=== PATIENT | female | born 1995 | race Caucasian/White ===

== ENCOUNTER 2023-06-24 19:08 | Inpatient (IN) ==
[2023-06-24] MEDS ORDERED: LIDOCAINE 1% LOCAL 20 ML VIAL INFIL PRN (19:27)
[2023-06-24] MEDS ORDERED: OXYTOCIN 30 UNITS/NSS 30 UNITS/500 ML BAG IV PRN (19:27)
--- NOTE | 2023-06-24 19:30 | History & Physical Report ---
Date of Service June 24, 2023 Assessment & Plan (1) 40 weeks gestation of : Plan: Admit she is early labor she is 4 cm now she was 2 cm in the office she is tomorrow's induction so we will keep her and admit her she is having some bright red bleeding I am assuming this is related to cervical change but we will watch this carefully membranes appear intact History of Present Illness Primary Care Provider: NO PCP LEE Calculator Estimated Delivery Date Method Current WG Current Estimate 06/17/23 Ultrasound #1 40w 6d : 1 Full term: 0 Premature: 0 Total Number of Induced Abortions: 0 Total Number of Spontaneous Abortions: 0 Ectopics: 0 Multiple births: 0 Number of Living Children: 0 and Delivery Plans Current every day vaping early labor Allergies Allergy/AdvReac Type Severity Reaction Status Date / Time No Known Allergies Allergy Verified 06/23/23 14:20 Home Medications Medication Instructions Recorded Confirmed Type [id number] acid 1 tab PO DAILY 02/07/23 06/24/23 History [ Multi] Patient History Medical History PTSD (post-traumatic stress disorder) Depression with anxiety History of chicken pox Surgical History S/P wisdom tooth extraction S/P tonsillectomy Family History Denies family history of Ovarian cancer Breast cancer Colorectal cancer Social History Smoking Status: Never smoker Tobacco Type: E-cigarettes / Vaping Do You Dip or Chew Tobacco: No; Hx Alcohol Use: No Hx Substance Use: No Preferred Language: Nauruan marital status: Single marital status details: nay Crisostomo (25) [phone] Current Living Situation: Significant Other Current Living Situation Comment: lives with fob, dogs, cat-fob changing litter current occupational status: unemployed Feels Safe at Home: Yes Physical Exam Constitutional: WD/WN, vitals as above well developed and well nourished Respiratory: normal respiratory effort, lungs clear to auscultation normal respiratory effort Cardiovascular: RRR, no murmur, no edema Gastrointestinal (Abdomen): normal bowel sounds, soft, nontender, no hepatosplenomegaly Results & Data Vital Signs (Past 12 Hours) Vital Signs Pulse BP 06/24/23 19:20 88 132/82 Coding Level of Care Code None Diagnoses 40 weeks gestation of Z3A.40
[2023-06-24] MEDS: LACTATED RINGER'S 1,000 ML IV PRN (19:40)
[2023-06-24 20:06] LABS: Hematocrit (blood only) 36.4 % (37.0-47.0); Hemoglobin 12.8 g/dl (12.0-16.0); Mean Corpuscular Hemoglobin 30.4 pg (25.0-34.0); Mean Corpuscular Hgb Conc 35.2 g/dL (32.0-36.0); Mean Corpuscular Volume 86.5 fL (80.0-100.0); Mean Platelet Volume 11.2 fL (9.4-12.4); Platelet Count 203 K/uL (130-400); RDW Coefficient of Variation 13.1 % (11.5-14.5); RDW Standard Deviation 40.8 fL (36.4-46.3); Red Blood Count 4.21 M/uL (4.20-5.40); White Blood Count 13.24 K/ul (4.8-10.8)
--- NOTE | 2023-06-24 20:36 | Labor Progress Brief Note ---
Date of Service June 24, 2023 Multiple variable decelerations noted on the tracing and additionally some increased vaginal bleeding is somewhat worrisome as her contractions are only mild I rechecked her she is still 4 cm blood is noted on the glove. She passed an orange sized clot and then a plum sized clot Had a lengthy discussion with the patient and said at this stage she is not really an active labor she is probably getting some early labor contractions and her fetus is showing variable decelerations with the bleeding I have offered her 2 choices 1 is we can hydrate and observe and the alternative is just proceed straight to section with the bleeding in the decelerations present at such an early stage I have counseled in depth on both options including the risks of and also the risks of waiting with the potential for the tracing to become worse and then a more of a need for an urgent situation of section. The patient was counseled to the nature of the procedure including alternatives such as labor. Risks were discussed including bleeding infection injury to bowel bladder ureter vessels and even baby. Deep Vein thrombosis, pulmonary embolus discussed. Breakdown of incision reviewed. Deep vein thrombosis pulmonary embolus hernia and failure of the incision to heal were discussed Patient verbalized understanding of this and was given ample time to ask questions Assessment & Plan Admission and Anticipated Discharge Date Admission Date: June 24, 2023 Results & Data Vital Signs (Past 12 Hours) Vital Signs Temp Pulse Resp BP 06/24/23 19:25 98.2 F 18 06/24/23 19:20 88 132/82 Coding Level of Care Code None
--- NOTE | 2023-06-24 20:55 | Anesthesiology Consultation ---
Date of Service June 24, 2023 Assessment & Plan Chart Review Chart Review: Acceptable Risk for Surgery and Patient NOT seen in Pre Admission Testing Consults Requested none History Height/Weight Height: 5 ft 5 in Weight: 84.368 kg Allergies Allergy/AdvReac Type Severity Reaction Status Date / Time No Known Allergies Allergy Verified 06/23/23 14:20 Medications Home Medications Medication Instructions Recorded Confirmed Last Taken [id number] acid 1 tab PO DAILY 02/07/23 06/24/23 06/24/23 [ Multi] Active Medications Generic Name Dose Route Start Last Admin Trade Name Freq PRN Reason Stop Dose Admin Lactated Ringer's 1,000 mls @ 125 mls/hr 06/24/23 19:27 06/24/23 19:40 Lr IV 06/26/23 19: 999 mls/hr .Q8H PRN Administration L&D Protocol Protocol Past Medical History Medical History PTSD (post-traumatic stress disorder) Depression with anxiety History of chicken pox Past Family History Family History Denies family history of Ovarian cancer Breast cancer Colorectal cancer Past Surgical History Surgical History S/P wisdom tooth extraction S/P tonsillectomy Social History Smoking Status: Never smoker Do You Dip or Chew Tobacco: No Hx Alcohol Use: No Hx Substance Use: No substance use type: does not use Physical Exam Vital Signs Last Vital Signs Temp 36.8 C 06/24/23 19:25 Pulse 88 06/24/23 19:20 Resp 18 06/24/23 19:25 BP 132/82 06/24/23 19:20 Constitutional WD/WN, vitals as above well developed and well nourished Respiratory normal respiratory effort, lungs clear to auscultation normal respiratory effort Cardiovascular RRR, no murmur, no edema Gastrointestinal (Abdomen) normal bowel sounds, soft, nontender, no hepatosplenomegaly Testing Laboratory Results 06/24/23 19:46
[2023-06-24] MEDS ORDERED: MoRPHine SULFATE PF 1 MG/ML 10 ML AMP/VIAL ONE (21:02)
[2023-06-24] MEDS ORDERED: fentaNYL citrate PF 100 MCG/2 ML VIAL ONE (21:02)
[2023-06-24] MEDS ORDERED: PHENYLEPHRINE HCL 10 MG/ML VIAL ONE (21:04)
[2023-06-24] MEDS ORDERED: OXYTOCIN 10 UNITS/ML VIAL ONE ×3 (21:04)
[2023-06-24] MEDS: LACTATED RINGER'S 1,000 ML IV SCH (21:06)
[2023-06-24] MEDS: ceFAZolin 2000MG 2,000 MG/15 ML SYR IV SCH (21:14)
[2023-06-24] MEDS ORDERED: ONDANSETRON INJ 2 MG/ML 2 ML VIAL IV PRN (21:58)
[2023-06-24] MEDS ORDERED: NALOXONE HCL 0.4 MG/1 ML VIAL/CARP IV PRN (21:58)
[2023-06-24] MEDS ORDERED: DROPERIDOL 5 MG/2 ML VIAL IV PRN (21:58)
[2023-06-24] MEDS ORDERED: NALBUPHINE HCL 5 MG in SYRINGE 0 ML IV PRN (21:58)
[2023-06-24] MEDS ORDERED: NALOXONE HCL 0.08 MG in SYRINGE 1.8 ML IV PRN (21:58)
[2023-06-24] MEDS ORDERED: NALOXONE HCL 1 MG in SODIUM CHLORIDE 0.9% 1,000 ML IV PRN (21:58)
[2023-06-24] MEDS ORDERED: MoRPHine SULFATE PF 1 MG/ML 10 ML AMP/VIAL INT SPINAL ONE (21:58)
[2023-06-24] MEDS ORDERED: HYDROmorphone INJ 0.5 MG/0.5 ML SYR IV PRN (21:58)
[2023-06-24] MEDS ORDERED: diphenhydrAMINE 50 MG/ML VIAL IV PRN (21:58)
[2023-06-24] MEDS ORDERED: ePHEDrine sulfate 50 MG/ML AMP IV PRN (21:58)
[2023-06-24] MEDS ORDERED: LACTATED RINGER'S 500 ML IV PRN (21:58)
[2023-06-24] MEDS ORDERED: DC INTRASPINAL MORPHINE SCH (22:00)
[2023-06-24] MEDS ORDERED: NO NARCOTICS OR SEDATIVES SCH (22:00)
[2023-06-24] MEDS ORDERED: SODIUM CHLORIDE 0.9% 1,000 ML IV SCH (22:00)
--- NOTE | 2023-06-24 22:19 | Operative Report ---
PG Post Operative Report Pre & Post Diagnosis Operation Date: 06/24/23 21:00 Placental abruption and nonreassuring heart rate tracing I identified the patient and participated in the time-out.: Yes Procedure Operation Date: 06/24/23 21:00 Actual Procedures p Section in LD for the of a live male child @ 2150(Bilateral) - Sherrie Zhao MD, FACOG Surgeon Sherrie Zhao MD, FACOG Data Governance Analyst CHAGO Cuevas Estimated Blood Loss 500 Findings Consistent with Post-Op Diagnosis Normal uterus and ovaries Specimens Cord gases Cord blood placenta Description of Procedure Regional anesthetic had been given by anesthesia patient was prepped and draped with a leftward tilt preoperative antibiotics had been given in appropriate timing by anesthesiology. Once the prep was allowed to fully dry timeout was performed. Pickups with teeth were used to test the incision area was found to be adequate for incision as the patient did not feel sharp pain. Scalpel was used to make a Pfannenstiel incision on the lower abdomen. We then cut through the subcutaneous fat down to the level of the anterior rectus sheath fascia this was cut in the midline and then extended laterally with the curved Yang scissors. At this stage we then placed 2 Crescencio clamps on the anterior aspect of the fascia. Using the curved Yang's we are able to dissect the fascia superiorly away from the rectus muscles. Care was taken to maintain hemostasis. Crescencio clamps were then placed to the inferior aspect of the anterior sheath of the fascia. Fascia was then dissected away from the rectus muscles inferiorly towards the pubic bone. A Crescencio was then placed in the midline both inferiorly and superiorly. This was to allow exposure by retraction rectus muscles were in the midline with were then able to cut through the peritoneum and then enter the peritoneal cavity. Opening was enlarged to allow exposure of the peritoneal cavity both superiorly and inferiorly. Once adequate space was obtained a bladder retractor was placed to expose the lower segment Metzenbaums were used to dissect the bladder flap inferiorly away from the uterus. This was done sharply bladder retractor was then repositioned to expose the lower segment of the uterus Fresh scalpel was used to make a low transverse incision on the uterus. Uterus was then entered bluntly with the operators finger, membranes ruptured and the opening was enlarged using the operators fingers bluntly pulling superiorly and inferiorly to allow exposure. Baby was delivered by first flexion of the head elevation of the head out of the pelvis and then pressure by the human resource assistant on the maternal abdomen. Baby's head was then delivered mouth and then nares were suctioned and then using gentle traction the baby was fully delivered. Live vigorous . Fluid was clear cord clamped and cut cord gases obtained cord blood obtained baby handed to pediatrics. Placenta removed was removed with traction we ensure the entire placenta was removed with a moist lap sponge into the uterus Uterus was then exteriorized. IV Pitocin had been started by anesthesia tone improved there were no extensions the uterus was then closed using 0 Monocryl in a 2 layer closure the first layer closed in a running locked fashion from left to right and then a second closure from left to right in a running nonlocked fashion. At this stage hemostasis was excellent. Uterus was placed back in the peritoneal cavity with suction irrigation out and inspection of the uterus at this stage revealed excellent hemostasis Retractors were removed urine color was clear at this stage of the case we inspected the rectus muscles they were hemostatic fascia was closed with 0 Vicr yl subcutaneous fat was irrigated and closed with 3-0 Vicryl skin closed with 4- 0 subcuticular Monocryl Note uterus and adnexa were normal I attest to the content of the Intraoperative Record and any orders documented therein. Any exceptions are noted below. OB Procedure Charges 06073
--- NOTE | 2023-06-24 22:32 | Anesthesiology Progress Note ---
Date of Service June 24, 2023 Anesthesia Post Procedure Vital Signs Vital Signs: Temp Pulse Resp BP Pulse Ox 06/24/23 22:29 73 100 06/24/23 22:28 82 93 06/24/23 22:24 78 195/149 H 100 06/24/23 19:25 36.8 C 18 06/24/23 19:20 88 132/82 Transfer of Care Handoff Completed per policy Notes Mental Status: alert / awake / arousable Patient Amnestic to Procedure: Yes Nausea / Vomiting: adequately controlled Pain: adequately controlled Airway Patency, RR, SpO2: stable & adequate BP & HR: stable & adequate Hydration State: stable & adequate Anesthetic Complications: no major complications apparent and Pt Satisfied with anesthetic care
[2023-06-24] MEDS ORDERED: HYDROCORTISONE ACETATE 25 MG SUPP PR PRN (22:37)
[2023-06-24] MEDS ORDERED: BENZOCAINE 20% SPRY 85 APPLN/85 GM CAN EXT PRN (22:37)
[2023-06-24] MEDS ORDERED: SENNA 8.6 MG TAB PO PRN (22:37)
[2023-06-24] MEDS ORDERED: MAGNESIUM HYDROXIDE SUSP 30 ML UDC PO PRN (22:37)
[2023-06-24 22:56] LABS: Base Excess Cord Arterial Bld -5.3 mEq/L (-9-1.8); CO2 Cord Arterial Blood 77 mmHg (39.1-73.5); Cord Venous Blood HCO3 23 mmol/L (18.4-26.8); Cord Venous Blood PCO2 46 mmHg (30.4-57.2); Cord Venous Blood PO2 40 mmHg (14.1-43.3); HCO3 Cord Arterial Blood 26 mmol/L (19.7-28.5); O2 Saturation Cord Venous Bld 64.6 % (<68); Oxygen Sat Cord Arterial Blood < 60.0 % (<60); PO2 Cord Arterial Blood < 20 mmHg (4.1-31.7); pH Cord Arterial Blood 7.13 (7.1-7.38)
[2023-06-24] MEDS: OXYTOCIN 20 UNITS/LR 1,002 ML IV SCH (23:00)
[2023-06-24] MEDS: DIPHTHER/TETAN/PERTUS Vaccine (Tdap, Adol/Adult) 0.5mL IM ONE (23:22)
[2023-06-24] MEDS: KETOROLAC 30 MG/ML VIAL IV PRN (23:30)
[2023-06-25 06:32] LABS: Basophils # (auto) 0.04 K/uL (0.00-0.20); Basophils % (auto) 0.3 %; Eosinophils # (auto) 0.08 K/uL (0.00-0.50); Eosinophils % (auto) 0.6 %; Hematocrit (blood only) 35.2 % (37.0-47.0); Immature Granulocytes # (auto) 0.08 K/uL (0.01-0.20); Immature Granulocytes % (auto) 0.6 %; Lymphocytes % (auto) 19.2 %; Mean Corpuscular Hemoglobin 30.2 pg (25.0-34.0); Mean Corpuscular Hgb Conc 34.1 g/dL (32.0-36.0); Mean Corpuscular Volume 88.7 fL (80.0-100.0); Mean Platelet Volume 10.8 fL (9.4-12.4); Monocytes # (auto) 0.98 K/uL (0.11-0.59); Neutrophils # (auto) 10.18 K/uL (1.40-6.50); Neutrophils % (auto) 72.3 %; Platelet Count 172 K/uL (130-400); RDW Coefficient of Variation 12.9 % (11.5-14.5); RDW Standard Deviation 41.9 fL (36.4-46.3); Red Blood Count 3.97 M/uL (4.20-5.40); White Blood Count 14.06 K/ul (4.8-10.8)
--- NOTE | 2023-06-25 07:09 | Obstetrical Progress Note ---
Date of Service June 25, 2023 Assessment & Plan (1) care and examination: Plan: Doing well cath out encourage ambulation pain control Admission and Anticipated Discharge Date Admission Date: June 24, 2023 Supervising Physician Co-Signing Physician Notes Resident Physician Supervision Note: I was present with Dr.Dr. Wallace during the history and exam. I discussed the case with the resident and agree with the findings and plan as documented in the note. Any exceptions or clarifications are listed here: [None] Documented By: Sherrie Zhao MD, FACOG Subjective 27 yo post op day 1 s/p for placental abruption Ambulation: not yet ambulating Voiding: cath in place Passing Gas:: Yes Diet Tolerance:: regular diet Lochia:: Small Feeding Type:: breast feeding Current Pain Level: minimal Resting comfortably this AM in NAD. Denies VILLALPANDO, CP, SOB, N/V/D, LE pain/swelling. Review of Systems Review of Systems: reviewed, per HPI Physical Exam Physical Exam: General: patient resting comfortably, NAD, non-toxic in appearance, answers questions appropriately. Skin: warm, dry, intact HEENT: NC/AT, anicteric sclera, conjunctiva without injection, moist mucus membranes. Heart: +S1/S2, regular, no m/r/g Lungs: equal air entry bilaterally, no rales/rhonchi/wheezes Abd: +BS, soft, NT/ND, uterine fundus firm at umbilicus, caesarean incision dressing C/D/I. Ext: warm, no clubbing/cyanosis or edema, Lesley's neg. Neuro: nonfocal, speech intact, no facial droop, moving all extremities on command. Results & Data Vital Signs (Past 12 Hours) Vital Signs Temp Pulse Pulse Resp BP BP Pulse Ox 06/25/23 05:00 16 97 06/25/23 05:00 36.7 C 81 16 113/66 97 06/25/23 04:00 17 96 06/25/23 03:00 16 95 06/25/23 02:00 16 97 06/25/23 01:00 06/25/23 01:00 36.6 C 86 17 112/64 95 06/25/23 01:00 17 95 06/25/23 00:34 84 119/60 97 06/25/23 00:29 86 97 02/28/24 00:25 111/63 06/25/23 00:24 87 96 06/25/23 00:19 92 H 97 06/25/23 00:15 84 103/55 L 06/25/23 00:14 84 97 06/25/23 00:09 88 97 06/25/23 00:05 83 107/57 L 06/25/23 00:04 36.8 C 18 06/25/23 00:04 84 97 06/24/23 23:59 86 98 06/24/23 23:55 82 109/59 L 06/24/23 23:54 90 98 06/24/23 23:49 78 98 06/24/23 23:44 89 99 06/24/23 23:39 78 99 06/24/23 23:36 80 91 06/24/23 23:35 75 121/89 06/24/23 23:34 75 98 06/24/23 23:29 86 97 06/24/23 23:25 75 118/84 06/24/23 23:24 16 06/24/23 23:24 76 98 06/24/23 23:19 80 98 06/24/23 23:14 16 06/24/23 23:14 78 100 06/24/23 23:09 83 99 06/24/23 23:08 78 91 06/24/23 23:05 63 119/58 L 06/24/23 23:04 16 06/24/23 23:04 72 100 06/24/23 22:59 100 06/24/23 22:59 81 06/24/23 22:59 87 91 06/24/23 22:55 69 127/70 06/24/23 22:54 17 06/24/23 22:54 78 99 06/24/23 22:49 78 97 06/24/23 22:45 76 136/78 06/24/23 22:44 21 06/24/23 22:44 72 100 06/24/23 22:42 70 92 06/24/23 22:39 79 95 06/24/23 22:37 95 H 91 06/24/23 22:34 36.7 C 20 06/24/23 22:34 100 06/24/23 22:34 82 06/24/23 22:34 81 132/60 06/24/23 22:33 134 H 177/119 H 06/24/23 22:29 73 100 06/24/23 22:28 82 93 06/24/23 22:24 78 195/149 H 100 06/24/23 19:25 36.8 C 18 06/24/23 19:20 88 132/82 O2 Del Method 06/25/23 05:00 06/25/23 05:00 Room Air 06/25/23 04:00 06/25/23 03:00 06/25/23 02:00 06/25/23 01:00 Room Air 06/25/23 01:00 Room Air 06/25/23 01:00 06/25/23 00:34 06/25/23 00:29 06/25/23 00:25 06/25/23 00:24 06/25/23 00:19 06/25/23 00:15 06/25/23 00:14 06/25/23 00:09 06/25/23 00:05 06/25/23 00:04 06/25/23 00:04 06/24/23 23:59 06/24/23 23:55 06/24/23 23:54 06/24/23 23:49 06/24/23 23:44 06/24/23 23:39 06/24/23 23:36 06/24/23 23:35 06/24/23 23:34 06/24/23 23:29 06/24/23 23:25 06/24/23 23:24 06/24/23 23:24 06/24/23 23:19 06/24/23 23:14 06/24/23 23:14 06/24/23 23:09 06/24/23 23:08 06/24/23 23:05 06/24/23 23:04 06/24/23 23:04 06/24/23 22:59 06/24/23 22:59 06/24/23 22:59 06/24/23 22:55 06/24/23 22:54 06/24/23 22:54 06/24/23 22:49 06/24/23 22:45 06/24/23 22:44 06/24/23 22:44 06/24/23 22:42 06/24/23 22:39 06/24/23 22:37 06/24/23 22:34 06/24/23 22:34 06/24/23 22:34 06/24/23 22:34 06/24/23 22:33 06/24/23 22:29 06/24/23 22:28 06/24/23 22:24 06/24/23 19:25 06/24/23 19:20 Resident Activity Tracking Resident Involvement: Resident Care Provided Care Provided: Adult Hospital Medicine
[2023-06-25] MEDS: LACTATED RINGER'S 1,000 ML IV SCH (07:53)
[2023-06-25] MEDS: DOCUSATE SODIUM 100 MG CAP PO SCH (09:09)
[2023-06-25] MEDS: PRENATAL VITAMIN 1 TAB PO SCH (09:09)
[2023-06-25] MEDS: SIMETHICONE 80 MG CHEW PO SCH (09:09)
[2023-06-25] MEDS: FERROUS SULFATE 325 MG TAB PO SCH (09:09)
[2023-06-25] MEDS: IBUPROFEN 600 MG TAB PO PRN (15:38)
[2023-06-25] MEDS ORDERED: diphenhydrAMINE Capsule 25 MG CAP PO PRN (16:00)
[2023-06-25] MEDS ORDERED: ONDANSETRON INJ 2 MG/ML 2 ML VIAL IV PRN (16:00)
[2023-06-25] MEDS ORDERED: diphenhydrAMINE 50 MG/ML VIAL IV PRN (16:00)
[2023-06-25] MEDS ORDERED: PROMETHAZINE HCL 25 MG in SODIUM CHLORIDE 0.9% 50 ML IV PRN (16:00)
[2023-06-25] MEDS ORDERED: KETOROLAC 30 MG/ML VIAL IV PRN (16:00)
[2023-06-25] MEDS: oxyCODONE/ACETAMINOPHEN 5mg/325mg TAB PO PRN (17:15)
[2023-06-25] MEDS: bisacodyL 5 MG TABEC PO SCH (22:53)
--- NOTE | 2023-06-26 05:58 | Obstetrical Progress Note ---
Date of Service June 26, 2023 Assessment & Plan (1) care and examination: Plan: Doing well encourage ambulation pain control anticipate dc tomorrow Admission and Anticipated Discharge Date Admission Date: June 24, 2023 Supervising Physician Co-Signing Physician Notes Resident Physician Supervision Note: I interviewed and examined the patient. Discussed with Dr. Wallace and agree with findings and plan as documented in the note. Any exceptions or clarifications are listed here: [ ] Documented By: Laurie Joshi MD, FACOG Subjective 27 yo post op day 2 s/p for placental abruption Ambulation: normally Voiding: normally Passing Gas:: Yes Diet Tolerance:: regular diet Lochia:: Small Feeding Type:: breast feeding Current Pain Level: minimal Resting comfortably this AM in NAD. Denies VILLALPANDO, CP, SOB, N/V/D, LE pain/swelling. Review of Systems Review of Systems: reviewed, per HPI Physical Exam Physical Exam: General: patient resting comfortably, NAD, non-toxic in appearance, answers questions appropriately. Skin: warm, dry, intact HEENT: NC/AT, anicteric sclera, conjunctiva without injection, moist mucus membranes. Heart: +S1/S2, regular, no m/r/g Lungs: equal air entry bilaterally, no rales/rhonchi/wheezes Abd: +BS, soft, NT/ND, uterine fundus firm at umbilicus, caesarean incision C/D/I. Ext: warm, no clubbing/cyanosis or edema, Lesley's neg. Neuro: nonfocal, speech intact, no facial droop, moving all extremities on command. Results & Data Vital Signs (Past 12 Hours) Vital Signs Temp Pulse Resp BP Pulse Ox O2 Del Method 06/25/23 23:35 36.8 C 81 16 118/70 96 Room Air 06/25/23 20:00 36.8 C 79 16 120/78 96 Room Air Resident Activity Tracking Resident Involvement: Resident Care Provided Care Provided: Adult Hospital Medicine
[2023-06-26 07:12] LABS: Hematocrit (blood only) 31.9 % (37.0-47.0)
[2023-06-26] MEDS: bisacodyL 5 MG TABEC PO ONE (16:35)
[2023-06-26 16:53] VITALS: RESP 16; O2SAT 98
[2023-06-26] MEDS ORDERED: bisacodyL 10 MG SUPP PR PRN (22:16)
--- NOTE | 2023-06-27 06:27 | Obstetrical Progress Note ---
Date of Service June 27, 2023 Assessment & Plan (1) care and examination: Plan: Doing well encourage ambulation pain control dc today Admission and Anticipated Discharge Date Admission Date: June 24, 2023 Supervising Physician Co-Signing Physician Notes Resident Physician Supervision Note: I interviewed and examined the patient. Discussed with Dr. Wallace and agree with findings and plan as documented in the note. Any exceptions or clarifications are listed here: POD3 s/p pLTCS, doing well. Some discomfort w/ getting up but manageable. VSS, exam benign and wnl. Incision c/d/i. DC home Documented By: Emily Bolivar MD Subjective 27 yo post op day 3 s/p for placental abruption Ambulation: normally Voiding: normally Passing Gas:: Yes Diet Tolerance:: regular diet Lochia:: Small Feeding Type:: breast feeding Current Pain Level: minimal Resting comfortably this AM in NAD. Denies VILLALPANDO, CP, SOB, N/V/D, LE pain/swelling. Review of Systems Review of Systems: reviewed, per HPI Physical Exam Physical Exam: General: patient resting comfortably, NAD, non-toxic in appearance, answers questions appropriately. Skin: warm, dry, intact HEENT: NC/AT, anicteric sclera, conjunctiva without injection, moist mucus membranes. Heart: +S1/S2, regular, no m/r/g Lungs: equal air entry bilaterally, no rales/rhonchi/wheezes Abd: +BS, soft, NT/ND, uterine fundus firm at umbilicus, caesarean incision C/D/I. Ext: warm, no clubbing/cyanosis or edema, Lesley's neg. Neuro: nonfocal, speech intact, no facial droop, moving all extremities on command. Results & Data Vital Signs (Past 12 Hours) Vital Signs Temp Pulse Resp BP Pulse Ox O2 Del Method 06/26/23 19:30 36.7 C 76 16 123/81 98 Room Air Resident Activity Tracking Resident Involvement: Resident Care Provided Care Provided: Adult Hospital Medicine
[2023-06-27 09:28] VITALS: BP 148/92; PULSE 65; TEMP 97.9
== END 2023-06-27 15:00 | disposition home or self-care (01) | DRG 788 ==
LOC: OPB 19:08 → 4S1 19:10 → 4E2 06-25 00:45
DX: Z37.0 Single live birth; O76 Abnormality in fetal heart rate and rhythm complicating labor and delivery; Z79.899 Other long term (current) drug therapy; Z3A.40 40 weeks gestation of pregnancy; F17.290 Nicotine dependence, other tobacco product, uncomplicated; O45.8X3 Other premature separation of placenta, third trimester; O99.334 Smoking (tobacco) complicating childbirth